=== PATIENT | male | born 1985 | race Caucasian/White ===

== ENCOUNTER 2018-03-23 12:25 | Emergency (ER) | payer MEDICAID ==
[2018-03-23] MEDS ORDERED: MORPHINE SULFATE 10 MG/ML INJ IV ONE (12:40)
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
[2018-03-23 12:44] VITALS: BP 142/85
[2018-03-23 13:30] LABS: ABSOLUTE BASOPHILS # (AUTO) 0.1 10^3/uL (0.0-0.2); ABSOLUTE EOSINOPHILS # (AUTO) 0.2 10^3/uL (0.0-0.6); ABSOLUTE LYMPHOCYTES (AUTO) 1.6 10^3/uL (0.5-4.7); ABSOLUTE MONOCYTES (AUTO) 0.5 10^3/uL (0.1-1.4); ABSOLUTE NEUT (AUTO) 6.7 10^3/uL (1.7-8.2); BASOPHILS % (AUTO) 0.6 % (0-2); EOSINOPHILS % (AUTO) 2.6 % (0-6); HEMATOCRIT 42.3 % (37.9-51.0); HEMOGLOBIN 14.5 g/dL (13.5-17.0); LYMPHOCYTES % (AUTO) 17.1 % (13-45); MEAN CORPUSCULAR HEMOGLOBIN 32.4 pg (27.0-33.4); MEAN CORPUSCULAR HGB CONC 34.3 g/dL (32.0-36.0); MEAN CORPUSCULAR VOLUME 94 fl (80-97); MONOCYTES % (AUTO) 5.9 % (3-13); PLATELET COUNT 250 10^3/uL (150-450); RED BLOOD COUNT 4.48 10^6/uL (4.35-5.55); SEGMENTED NEUTROPHILS % (AUTO) 73.8 % (42-78); TOTAL CELLS COUNTED % (AUTO) 100 %; WHITE BLOOD COUNT 9.1 10^3/uL (4.0-10.5)
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
[2018-03-23 13:52] LABS: ALANINE AMINOTRANSFERASE 29 U/L (21-72); ALBUMIN 4.3 g/dL (3.5-5.0); ALKALINE PHOSPHATASE 78 U/L (38-126); ANION GAP 10 (5-19); ASPARTATE AMINO TRANSFERASE 33 U/L (17-59); BILIRUBIN,DIRECT 0.3 mg/dL (0.0-0.4); BILIRUBIN,TOTAL 0.5 mg/dL (0.2-1.3); BLOOD UREA NITROGEN 11 mg/dL (7-20); CALCIUM 9.5 mg/dL (8.4-10.2); CARBON DIOXIDE 28 mmol/L (22-30); CHLORIDE 105 mmol/L (98-107); GLUCOSE 96 mg/dL (75-110); POTASSIUM 4.7 mmol/L (3.6-5.0); SODIUM 143.1 mmol/L (137-145)
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
== END 2018-03-23 15:19 | disposition home or self-care (01) ==
LOC: ER 12:25
DX: S30.0XXA Contusion of lower back and pelvis, initial encounter (principal); Y08.02XA Assault by strike by baseball bat, initial encounter; F17.200 Nicotine dependence, unspecified, uncomplicated
CPT/HCPCS: 99284; 96374; 36415; 85025; 80053; 73130; 73564; 71260; 74177; J2270

== ENCOUNTER 2018-06-06 12:38 | Emergency (ER) | payer MEDICAID, OTHER ==
[2018-06-06] MEDS ORDERED: KETOROLAC TROMETHAMINE 60 MG/2 ML SDV IM ONE (13:26)
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
--- NOTE | 2018-06-06 13:52 | RADIOLOGY REPORT (SQ) ---
EXAM DESCRIPTION: TIBIA FIBULA LEFT COMPLETED DATE/TIME: 06/06/2018 1:42 pm REASON FOR STUDY: leg pain s/p injury COMPARISON: None. NUMBER OF VIEWS: Two views. TECHNIQUE: Two radiographic images acquired of the left tibia and fibula to include the knee and ank le in at least one projection. LIMITATIONS: None. FINDINGS: MINERALIZATION: Normal. BONES: No acute fracture or dislocation. No worrisome bone lesions. SOFT TISSUES: No obvious swelling or foreign body. OTHER: No other significant finding. IMPRESSION: NEGATIVE STUDY OF THE LEFT TIBIA AND FIBULA. NO RADIOGRAPHIC EVIDENCE OF ACUTE INJURY. TECHNICAL DOCUMENTATION: JOB ID: [id number] [employer]- All Rights Reserved Reading location - IP/workstation name: [email or web address]
[2018-06-06] MEDS ORDERED: ONDANSETRON 4 MG TAB.RAPDIS PO ONE (14:27)
[2018-06-06] MEDS ORDERED: OXYCODONE HCL IR 5 MG TABLET PO ONE (15:04)
[2018-06-06 15:29] VITALS: BP 135/79
== END 2018-06-06 15:29 | disposition home or self-care (01) ==
LOC: ER 12:38
DX: S80.812A Abrasion, left lower leg, initial encounter (principal); M79.605 Pain in left leg; W22.8XXA Striking against or struck by other objects, initial encounter; F17.200 Nicotine dependence, unspecified, uncomplicated
CPT/HCPCS: 99283; 96372; 73590; J1885; S0119

== ENCOUNTER 2019-03-26 15:36 | Emergency (ER) | payer SELFPAY ==
[2019-03-26 15:45] VITALS: BP 172/138
--- NOTE | 2019-03-26 16:06 | RADIOLOGY REPORT (SQ) ---
EXAM DESCRIPTION: ANKLE LEFT COMPLETE COMPLETED DATE/TIME: 03/26/2019 3:55 pm REASON FOR STUDY: positive deformity COMPARISON: None. NUMBER OF VIEWS: Three views. TECHNIQUE: AP, lateral, and oblique radiographic images acquired of the left ankle. LIMITATIONS: None. FINDINGS: MINERALIZATION: Normal. BONES: No acute fracture or dislocation. No worrisome bone lesions. JOINTS: No effusions. SOFT TISSUES: Soft tissue swelling about the lateral malleolus. OTHER: No other significant finding. IMPRESSION: No fracture or dislocation of the left ankle. Soft tissue swelling about the lateral ma lleolus. TECHNICAL DOCUMENTATION: JOB ID: [id number] [employer]- All Rights Reserved Reading location - IP/workstation name: [email or web address]
[2019-03-26] MEDS ORDERED: OXYCODONE-ACETAMINOPHEN 5-325 MG TABLET PO ONE (16:10)
--- NOTE | 2019-03-26 18:08 | ER Document Report ---
ED Extremity Problem, Lower - General Chief Complaint: Ankle Injury Stated Complaint: ANKLE INJURY Time Seen by Provider: 03/26/19 16:09 Notes: Patient is otherwise healthy 33-year-old male presents to the emergency department for inverting his left ankle prior to arrival to the emergency room. Patient states he was stepping off of 2 steps when he accidentally inverted his left ankle. Denies falling to the ground, hitting his head, neck, back. Patient denies loss of consciousness or vomiting. Patient denies pain or swelling to left knee. Only complaint is left lateral malleolus pain. TRAVEL OUTSIDE OF THE [place] IN LAST 30 DAYS: No - Related Data Allergies/Adverse Reactions: hydrocodone [Hydrocodone] Allergy (Verified 03/26/19 16:08) Past Medical History - General Information source: Patient - Social History Smoking Status: Current Every Day Smoker Chew tobacco use (# tins/day): No Frequency of alcohol use: Social Drug Abuse: None Family History: CVA, Hyperlipidemia, Malignancy Patient has suicidal ideation: No Patient has homicidal ideation: No - Past Medical History Cardiac Medical History: Reports: Hx Hypercholesterolemia Neurological Medical History: Reports: Hx Migraine Renal/ Medical History: Denies: Hx Peritoneal Dialysis GI Medical History: Reports: Hx Gastritis, Hx Gastroesophageal Reflux Disease, Hx Ulcer Traumatic Medical History: Reports: Hx Traumatic Brain Injury Past Surgical History: Reports: Hx Neurologic Surgery, Hx Oral Surgery - 04/02/14,04/22-, Hx Orthopedic Surgery - right foot - Immunizations Immunizations up to date: No Hx Diphtheria, Pertussis, Tetanus Vaccination: Yes - 2014 Hx Pneumococcal Vaccination: 09/17/11 Review of Systems - Review of Systems Constitutional: No symptoms reported EENT: No symptoms reported Cardiovascular: No symptoms reported Respiratory: No symptoms reported Gastrointestinal: No symptoms reported Genitourinary: No symptoms reported Male Genitourinary: No symptoms reported Musculoskeletal: See HPI Skin: No symptoms reported Hematologic/Lymphatic: No symptoms reported Neurological/Psychological: No symptoms reported Physical Exam - Vital signs Vitals: Temp Pulse Resp BP Pulse Ox 98.3 F 120 H 22 H 172/138 H 100 03/26/19 15:44 03/26/19 15:44 03/26/19 15:44 03/26/19 15:44 03/26/19 15:44 - Notes Notes: GENERAL: Alert, interacts well. No acute distress. HEAD: Normocephalic, atraumatic. EYES: Pupils equal, round, and reactive to light. Extraocular movements intact. ENT: Oral mucosa moist, tongue midline. NECK: Full range of motion. Supple. Trachea midline. LUNGS: Clear to auscultation bilaterally, no wheezes, rales, or rhonchi. No respiratory distress. HEART: Regular rate and rhythm. No murmur ABDOMEN: Soft, non-tender. Non-distended. Bowel sounds present in all 4 quadrants. EXTREMITIES: Moves all 4 extremities spontaneously. normal radial and dorsalis pedis pulses bilaterally. No cyanosis. Generalized swelling and ecchymosis noted left lateral malleolus, no pain upon palpation left medial malleolus. No pain upon palpation left knee, left proximal tib-fib region. No pain palpation left hip. PMS is equal bilateral lower extremities. BACK: no cervical, thoracic, lumbar midline tenderness. No saddle anesthesia, normal distal neurovascular exam. NEUROLOGICAL: Alert and oriented x3. Normal speech. cranial nerves II through XII grossly intact PSYCH: Normal affect, normal mood. SKIN: Warm, dry, normal turgor. No rashes or lesions noted. Course - Re-evaluation Re-evalutation: Ankle X-Ray 03/26/19 00:00 IMPRESSION: No fracture or dislocation of the left ankle. Soft tissue swelling about the lateral malleolus. Discussed use of ankle stirrup and crutches. Discussed close follow-up with primary care provider potentially orthopedics. Patient voices understanding. Ankle stirrup and crutches ordered. 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 03/26/19 18:15 As I am printing out discharge paperwork I have asked nursing staff to get a repeat set of vitals. Patient was noted to be tachycardic and hypertensive upon arrival to the emergency room. Nursing staff brings to my attention that the patient is no longer in the room, they are attempting to contact him via phone. 03/26/19 18:32 Nurse brings to my attention that she attempted to call the patient and was unable to reach him. At this point in time based on initial tachycardia and hypertension I would not discharge the patient with those vitals. At this point time the patient has left the emergency department AGAINST MEDICAL ADVICE. - Vital Signs Vital signs: Temp Pulse Resp BP Pulse Ox 98.3 F 120 H 22 H 172/138 H 100 03/26/19 15:44 03/26/19 15:44 03/26/19 15:44 03/26/19 15:44 03/26/19 15:44 Discharge - Discharge Clinical Impression: Left against medical advice Left ankle injury Qualifiers: Encounter type: initial encounter Qualified Code(s): S99.912A - Unspecified injury of left ankle, initial encounter Condition: Stable Disposition: AGAINST MEDICAL ADVICE Instructions: Ankle Stirrup Splint ([facility]), Use of Crutches ([facility]), Ice & Elevation ([facility]), Sprained Ankle ([facility]) Additional Instructions: As we discussed you have been seen and treated in the emergency department for an injury to your left ankle. X-rays revealed no signs of fractures at this time. Please make sure you use ankle stirrup as discussed and also crutches as needed. Please also follow-up with your primary care provider in the next 24 to 48 hours. Phone numbers for orthopedics have also been provided in this packet. Please return to the emergency room for any other concerns.
== END 2019-03-26 18:31 | disposition left against medical advice (07) ==
LOC: ER 15:36
DX: S99.912A Unspecified injury of left ankle, initial encounter (principal); X50.0XXA Overexertion from strenuous movement or load, initial encounter; R00.0 Tachycardia, unspecified; I10 Essential (primary) hypertension; E78.00 Pure hypercholesterolemia, unspecified
CPT/HCPCS: 99283; 73610; L1902

== ENCOUNTER 2019-11-11 15:48 | Emergency (ER) | payer MEDICAID ==
[2019-11-11] MEDS ORDERED: ACETAMINOPHEN 325 MG TABLET PO ONE (16:33)
[2019-11-11] MEDS ORDERED: KETOROLAC TROMETHAMINE INJ/PF 30 MG/1 ML SDV IV ONE (16:34)
--- NOTE | 2019-11-11 16:36 | ER Document Report ---
ED Medical Screen (RME) - General Chief Complaint: Chest Pain Stated Complaint: CHEST PAIN,SHORT OF BREATH Time Seen by Provider: 11/11/19 16:33 Notes: HPI: 34-year-old male presenting to the emergency department with 1 day of cough, shortness of breath, abdominal soreness. States children at home have been sick with upper respiratory symptoms, he felt well going to bed last night but woke up with generalized myalgia and flulike symptoms. Denies sore throat. States it does hurt to take a deep breath in. Did not have a fever at home but states that he did note a fever here. I have greeted and performed a rapid initial assessment of this patient. A comprehensive ED assessment and evaluation of the patient, analysis of test results and completion of the medical decision making process will be conducted by additional ED providers PHYSICAL EXAMINATION: GENERAL: Slightly ill-appearing, well-nourished and in mild acute distress. HEAD: Atraumatic, normocephalic. EYES: sclera anicteric, conjunctiva are normal. ENT: Moist mucous membranes. NECK: Normal range of motion LUNGS: Normal work of breathing, clear to auscultation HEART: 2+ radial pulses bilaterally, regular rate and rhythm. There is tenderness on palpation of the anterior chest wall ABD: limited by positioning for exam in triage. EXTREMITIES: no pitting or edema. No cyanosis. NEUROLOGICAL: No focal neurological deficits. Moves all extremities spontaneously and on command. PSYCH: Normal mood, normal affect. SKIN: Warm, Dry, normal turgor, no rashes or lesions noted. Slightly pale. TRAVEL OUTSIDE OF THE [place] IN LAST 30 DAYS: No - Related Data Allergies/Adverse Reactions: hydrocodone [Hydrocodone] Allergy (Verified 03/26/19 16:08) Past Medical History - Past Medical History Cardiac Medical History: Reports: Hx Hypercholesterolemia Neurological Medical History: Reports: Hx Migraine Renal/ Medical History: Denies: Hx Peritoneal Dialysis GI Medical History: Reports: Hx Gastritis, Hx Gastroesophageal Reflux Disease, Hx Ulcer Traumatic Medical History: Reports: Hx Traumatic Brain Injury Past Surgical History: Reports: Hx Neurologic Surgery, Hx Oral Surgery - 04/02/14,04/22-14, Hx Orthopedic Surgery - right foot - Immunizations Immunizations up to date: No Hx Diphtheria, Pertussis, Tetanus Vaccination: Yes - 2014 Physical Exam - Vital signs Vitals: Temp Pulse Resp BP Pulse Ox 101.2 F H 95 18 138/75 H 100 11/11/19 16:12 11/11/19 16:12 11/11/19 16:12 11/11/19 16:12 11/11/19 16:12 Course - Vital Signs Vital signs: Temp Pulse Resp BP Pulse Ox 101.2 F H 95 18 138/75 H 100 11/11/19 16:12 11/11/19 16:12 11/11/19 16:12 11/11/19 16:12 11/11/19 16:12
--- NOTE | 2019-11-11 17:00 | RADIOLOGY REPORT (SQ) ---
EXAM DESCRIPTION: CHEST 2 VIEWS COMPLETED DATE/TIME: 11/11/2019 4:50 pm REASON FOR STUDY: chest pain COMPARISON: 06/26/2010. EXAM PARAMETERS: NUMBER OF VIEWS: two views TECHNIQUE: Digital Frontal and Lateral radiographic views of the chest acquired. RADIATION DOSE: NA LIMITATIONS: none FINDINGS: LUNGS AND PLEURA: No opacities, masses or pneumothorax. No pleural effusion. MEDIASTINUM AND HILAR STRUCTURES: No masses or contour abnormalities. HEART AND VASCULAR STRUCTURES: Heart normal size. No evidence for failure. BONES: No acute findings. HARDWARE: None in the chest. OTHER: No other significant finding. IMPRESSION: NO ACUTE RADIOGRAPHIC FINDING IN THE CHEST. TECHNICAL DOCUMENTATION: JOB ID: [id number] 2010 [employer]- All Rights Reserved Reading location - IP/workstation name: [email or web address]
--- NOTE | 2019-11-11 17:06 | EKG REPORT ---
SEVERITY:- NORMAL ECG - SINUS RHYTHM : Confirmed by: Marcella Christian MD 11-Nov-2019 17:05:27
[2019-11-11 17:27] LABS: ABSOLUTE BASOPHILS # (AUTO) 0.1 10^3/uL (0.0-0.2); ABSOLUTE EOSINOPHILS # (AUTO) 0.1 10^3/uL (0.0-0.6); ABSOLUTE MONOCYTES (AUTO) 0.6 10^3/uL (0.1-1.4); TOTAL CELLS COUNTED % (AUTO) 100 %
[2019-11-11 17:32] LABS: ABSOLUTE LYMPHOCYTES (AUTO) 0.5 10^3/uL (0.5-4.7); ABSOLUTE NEUT (AUTO) 5.5 10^3/uL (1.7-8.2); BASOPHILS % (AUTO) 0.9 % (0-2); HEMATOCRIT 44.4 % (37.9-51.0); HEMOGLOBIN 15.8 g/dL (13.5-17.0); LYMPHOCYTES % (AUTO) 7.8 % (13-45); MEAN CORPUSCULAR HEMOGLOBIN 32.5 pg (27.0-33.4); MEAN CORPUSCULAR HGB CONC 35.5 g/dL (32.0-36.0); MEAN CORPUSCULAR VOLUME 92 fl (80-97); MONOCYTES % (AUTO) 9.2 % (3-13); PLATELET COUNT 240 10^3/uL (150-450); RED BLOOD COUNT 4.85 10^6/uL (4.35-5.55); RED CELL DISTRIBUTION WIDTH 13.1 % (11.5-14.0); SEGMENTED NEUTROPHILS % (AUTO) 81.1 % (42-78); WHITE BLOOD COUNT 6.8 10^3/uL (4.0-10.5)
[2019-11-11 17:38] LABS: A TYPE INFLUENZA AG NEGATIVE (NEGATIVE); B INFLUENZA AG NEGATIVE (NEGATIVE)
[2019-11-11 17:48] LABS: ALBUMIN 4.9 g/dL (3.5-5.0); ALKALINE PHOSPHATASE 89 U/L (38-126); ANION GAP 13 (5-19); ASPARTATE AMINO TRANSFERASE 21 U/L (17-59); BILIRUBIN,DIRECT 0.3 mg/dL (0.0-0.4); BILIRUBIN,TOTAL 0.5 mg/dL (0.2-1.3); BLOOD UREA NITROGEN 8 mg/dL (7-20); CARBON DIOXIDE 24 mmol/L (22-30); CHLORIDE 96 mmol/L (98-107); GLUCOSE 92 mg/dL (75-110); TOTAL PROTEIN 8.2 g/dL (6.3-8.2)
[2019-11-11] MEDS ORDERED: ALBUTEROL SULFATE HFA (90 MCG/PUFF) 8 GM MDI (1 MDI/ER DISP) IH PRN (19:27)
--- NOTE | 2019-11-11 19:31 | ER Document Report ---
ED General - General Chief Complaint: Chest Pain Stated Complaint: CHEST PAIN,SHORT OF BREATH Time Seen by Provider: 11/11/19 16:33 TRAVEL OUTSIDE OF THE [place] IN LAST 30 DAYS: No - HPI Notes: Patient is a 34-year-old male who presents emergency department for evaluation. He complains of fever, sore throat, cough. He has generalized myalgias. He complains of pain in his chest when he coughs. He has had some nausea but no emesis. Normal bowel movements. He is still urinating. He states that mult iple members of his family have had similar upper respiratory infection symptoms. - Related Data Allergies/Adverse Reactions: hydrocodone [Hydrocodone] Allergy (Verified 03/26/19 16:08) Past Medical History - General Information source: Patient - Social History Smoking Status: Current Every Day Smoker Family History: CVA, Hyperlipidemia, Malignancy Patient has suicidal ideation: No Patient has homicidal ideation: No - Past Medical History Cardiac Medical History: Reports: Hx Hypercholesterolemia Neurological Medical History: Reports: Hx Migraine Renal/ Medical History: Denies: Hx Peritoneal Dialysis GI Medical History: Reports: Hx Gastritis, Hx Gastroesophageal Reflux Disease, Hx Ulcer Traumatic Medical History: Reports: Hx Traumatic Brain Injury Past Surgical History: Reports: Hx Neurologic Surgery, Hx Oral Surgery - 04/02/14,04/22-, Hx Orthopedic Surgery - right foot - Immunizations Immunizations up to date: No Hx Diphtheria, Pertussis, Tetanus Vaccination: Yes - 2014 Hx Pneumococcal Vaccination: 09/17/11 Review of Systems - Review of Systems Constitutional: No symptoms reported Cardiovascular: See HPI Respiratory: See HPI Gastrointestinal: See HPI Musculoskeletal: See HPI -: Yes All other systems reviewed and negative Physical Exam - Vital signs Vitals: Temp Pulse Resp BP Pulse Ox 101.2 F H 95 18 138/75 H 100 11/11/19 16:12 11/11/19 16:12 11/11/19 16:12 11/11/19 16:12 11/11/19 16:12 - Notes Notes: Vital signs reviewed, please refer to chart. Head is normocephalic, atraumatic. Pupils equal round, reactive to light. Oral mucosa is moist. Pharynx is mildly erythematous without exudate. Neck is supple without meningismus. Heart is regular rate and rhythm. Lungs reveal scant expiratory wheezes throughout. Abdomen is soft, nontender, normoactive bowel sounds throughout. Extremities without cyanosis, clubbing. Posterior calves are nontender. Peripheral pulses are equal. Skin is warm and dry. Patient is awake, alert, neurological exam is nonfocal. Course - Re-evaluation Re-evalutation: 11/11/19 19:29 Patient presents emerged department for evaluation. He was febrile on arrival. He is given IV fluids, Tylenol, Toradol. His influenza swab was negative, but it is likely that this patient has influenza. He is not have any indications for Tamiflu treatment at this time. I will get and send him home with some albuterol. He is urged to quit smoking. He is to follow-up with his primary care provider this week. He is to return to the ED with worsening or new concerning symptoms of any sort. - Vital Signs Vital signs: Temp Pulse Resp BP Pulse Ox 101.2 F H 95 18 138/75 H 100 11/11/19 16:12 11/11/19 16:12 11/11/19 16:12 11/11/19 16:12 11/11/19 16:12 - Laboratory Result Diagrams: 11/11/19 17:13 11/11/19 17:13 Laboratory results interpreted by co: 11/11/19 11/11/19 17:13 17:13 Lymph % (Auto) 7.8 L Seg Neutrophils % 81.1 H Sodium 133.4 L Chloride 96 L Discharge - Discharge Clinical Impression: Influenza-like illness Fever Qualifiers: Encounter type: initial encounter Condition: Stable Disposition: HOME, SELF-CARE Instructions: Influenza ([facility]) Additional Instructions: Your findings today are most consistent with influenza. Please try to quit smoking. Use albuterol inhaler, 1 to 2 puffs every 4-6 hours as needed for shortness of breath. Stay well-hydrated. Tylenol or ibuprofen as needed for fever/pain. Follow-up with primary care this week. Return the emergency depa rtment worsening extending symptoms of any sort.
[2019-11-11 19:48] VITALS: BP 115/73
== END 2019-11-11 19:49 | disposition home or self-care (01) ==
LOC: ER 15:48
DX: J11.1 Influenza due to unidentified influenza virus with other respiratory manifestations (principal); R07.9 Chest pain, unspecified; R06.02 Shortness of breath; R50.9 Fever, unspecified; M79.10 Myalgia, unspecified site; F17.200 Nicotine dependence, unspecified, uncomplicated; E78.00 Pure hypercholesterolemia, unspecified; Z87.820 Personal history of traumatic brain injury
CPT/HCPCS: 93005; 99284; 96374; 36415; 85025; 80053; 87804; 71046; 93010; J3490 ×2; J1885

== ENCOUNTER 2020-01-08 18:21 | Emergency (ER) | payer OTHER ==
[2020-01-08 18:45] VITALS: BP 124/61
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
[2020-01-08 19:27] LABS: APPEARANCE,URINE CLEAR; BILIRUBIN,URINE NEGATIVE (NEGATIVE); COLOR,URINE YELLOW; GLUCOSE, URINE NEGATIVE (NEGATIVE); KETONES,URINE NEGATIVE (NEGATIVE); PROTEIN,URINE NEGATIVE (NEGATIVE); URINE SPECIFIC GRAVITY 1.015; UROBILINOGEN,URINE NEGATIVE mg/dL (<2.0)
[2020-01-08 19:38] LABS: URINE AMPHETAMINES SCREEN NEGATIVE; URINE BARBITURATES SCREEN NEGATIVE; URINE COCAINE SCREEN NEGATIVE; URINE METHADONE SCREEN NEGATIVE; URINE PHENCYCLIDINE SCREEN NEGATIVE
[2020-01-08 19:39] LABS: URINE BENZODIAZEPINES SCREEN UNCONFIRMED POSITIVE; URINE MARIJUANA (THC) SCREEN UNCONFIRMED POSITIVE
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
--- NOTE | 2020-01-08 20:17 | RADIOLOGY REPORT (SQ) ---
5 VIEWS OF CERVICAL SPINE EXAM DATE: 01/08/2020 7:07 PM CDT HISTORY: Neck pain. COMPARISON: None. FINDINGS: No acute cervical fracture or prevertebral soft tissue swelling is identified. There is straightening of the normal cervical lordosis, which may be due to cervical collar, muscle spasm, or patient positioning. There is normal alignment without subluxation. The disc spaces are preserved. There is no significant bony neural foraminal narrowing on the oblique views. IMPRESSION: No acute cervical fracture is seen. However, please note that if there is point tenderness or high clinical concern, a CT scan is recommended.
== END 2020-01-08 20:00 | disposition left against medical advice (07) ==
LOC: ER 18:21
DX: S20.212A Contusion of left front wall of thorax, initial encounter (principal); M54.2 Cervicalgia; R07.81 Pleurodynia; M25.512 Pain in left shoulder; M79.10 Myalgia, unspecified site; V49.50XA Passenger injured in collision with unspecified motor vehicles in traffic accident, initial encounter; E11.9 Type 2 diabetes mellitus without complications; F12.10 Cannabis abuse, uncomplicated; F17.210 Nicotine dependence, cigarettes, uncomplicated; Z71.6 Tobacco abuse counseling; Z88.6 Allergy status to analgesic agent; Z88.5 Allergy status to narcotic agent
CPT/HCPCS: 72050; 80307; 81001; 99281; 99406